=== PATIENT | female | born 1960 | race Caucasian/White ===

== ENCOUNTER 2016-09-10 10:15 | Day surgery (SDC) | payer MEDICARE ==
--- NOTE | 2016-09-10 09:22 | HP ---
DATE OF SURGERY: 09/10/2016 HISTORY OF PRESENT ILLNESS: The patient is a 55 year-old who in the past had epigastric pain, nausea and vomiting that had been going on for two to three months. No jaundice. Has had some loose stools. Ultrasound showed cholelithiasis. She received clearance from Dr. Roy. She denied prior history in the past. PAST MEDICAL HISTORY: Diabetes, chronic obstructive pulmonary disease, some heart disease, cervical cancer. PAST SURGICAL HISTORY: Hysterectomy, Achilles surgery. MEDICATIONS: Toujeo, gabapentin, Metformin, Gemfibrozil, Zetia, ropinirole, Xarelto, oxybutynin, cyclobenzaprine, Lortab, Combivent, lisinopril, Breo Ellipta. ALLERGIES: NKDA. FAMILY HISTORY: Diabetes, cancer. SOCIAL HISTORY: One pack per day smoker. Denies alcohol abuse. Noncontributory. REVIEW OF SYSTEMS: Twelve systems reviewed per admission assessment. No chest pain or palpitations currently, other systems negative or noncontributory as above and per preadmission questionnaire. She did have postoperative deep venous thrombosis in the past and that is why she is on the Xarelto. PHYSICAL EXAMINATION: GENERAL: No acute distress. HEENT: Sclerae nonicteric. NECK: No JVD. CHEST: Equal excursion, nonlabored breathing. CVS: Regular rate and rhythm. ABDOMEN: Soft. She had some epigastric pain. No peritoneal signs. EXTREMITIES: No significant edema. NEURO: Alert, moving extremities grossly symmetrically. No gross motor deficits noted. IMPRESSION: Symptomatic cholelithiasis, probable chronic cholecystitis. I feel the patient will benefit from cholecystectomy. Risks and benefits explained in detail including but not limited to bleeding or infection, risk of trocar injury or hernia, small risk of bowel, bladder or blood vessel injury, small risk of bile leak, bile duct injury, retained stone or sludge possibly requiring further procedure either open or ERCP, general risk of anesthesia, deep venous thrombosis, pulmonary embolism, pneumonia, perioperative risk of aches, pains, bloating, constipation and/or loose stools possibly even chronic in nature. She understands and agrees to the planned procedure, will proceed with laparoscopic cholecystectomy possible open as an outpatient.
[~2016-09-10 10:15] MED LIST: BRIDION 200MG/2ML IV ONE; DILAUDID 2 MG INJECTION IV ONE; DIPRIVAN 200 MG/20 ML IV ONE; Decadron 4 MG INJ IV ONE; Dopram IV ONE; Ephedrine Sulfate 50 MG/ML IV ONE; Lactated Ringers 1,000 ML IV ONE; PHENYLEPHRINE HCL IV ONE; Quelicin Fliptop 200 MG/10 ML IV ONE; SUBLIMAZE 100 MCG/2 ML IV ONE; Sensorcaine 0.25% 10 ML ONE; TORAdol 30 mg Injection IV ONE; Zemuron 100 MG/10 ML IV ONE; Zofran 4 MG/2 ML VIAL IV ONE
[2016-09-10] MEDS ORDERED: MEFOXIN 2 GM PREMIX** 50 ML IV ONE (10:44)
[2016-09-10] MEDS ORDERED: Lactated Ringers 1,000 ML IV SCH (11:00)
[2016-09-10] MEDS ORDERED: OFIRMEV 100 ML IV ONE (12:50)
[2016-09-10] MEDS ORDERED: SUBLIMAZE 100 MCG/2 ML ONE (13:27)
[2016-09-10] MEDS ORDERED: DILAUDID 2 MG INJECTION ONE (13:42)
[2016-09-10 17:49] VITALS: BP 101/50; O2SAT 94
[2016-09-10 17:50] VITALS: PULSE 70
--- NOTE | 2016-09-11 10:48 | OP ---
SURGERY DATE/TIME: 09/10/2016 1201 PREOPERATIVE DIAGNOSIS: Symptomatic cholelithiasis, chronic cholecystitis. POSTOPERATIVE DIAGNOSES: 1) Question early macroscopic cirrhosis of the liver. 2) Symptomatic cholelithiasis, chronic cholecystitis. PROCEDURES: 1) Laparoscopic cholecystectomy. 2) Laparoscopic liver Raul-Cut core biopsy. SURGEON: Dr. Yobany Rivera. ANESTHESIA: General. ESTIMATED BLOOD LOSS: Minimal. INDICATIONS: As noted above. Risks and benefits explained in detail but not limited to and consent obtained. DESCRIPTION OF PROCEDURE AND FINDINGS: The patient was taken to the OR. General anesthesia was induced. Abdomen is prepped and draped in the usual sterile fashion. After official time out and no disagreement with planned procedure, a transverse incision made at supraumbilical area. Fascia grasped and pulled upward. Veress needle inserted and tested with saline. Pneumoperitoneum accomplished insufflating opening pressure of 0-15. An 11 mm bladeless port and camera were inserted without difficulty followed by two - 5 mm right upper quadrant ports and an 11 mm epigastric port, a bladeless port placed 12 mm port. The liver had a macronodular early cirrhotic-type appearance, kind of a grayish color. There were omental adhesions to be taken off of the gallbladder and liver. The gallbladder was carefully dissected from posterior-lateral to anterior fashion this took quite some time but was slowly and carefully accomplished. The main cystic artery was clipped x3 and divided directly on the gallbladder wall this opened up the angle at the infundibular cystic duct junction, slowly and carefully skeletonized until a critical view was obtained both anteriorly and posteriorly. Once this was accomplished the cystic duct was inflamed so it was felt large clip alum operator would be a more secure closure. Therefore a 12 port had been placed in the epigastrium. A large clip was used clipping the cystic duct x3 and divided in the usual fashion. Gallbladder slowly and carefully dissected free from its dense almost concrete attachments to the liver bed staying directly on the gallbladder wall. It had some vascular attachments, some large veins and early cirrhosis appearance. Therefore this did require clipping these larger veins as necessary directly on the Gallbladder wall. Slowly and carefully the gallbladder was dissected free, final vein anterior edge of the liver was clipped. Just prior to releasing from final attachments at this point it was elected to go ahead and do Raul-Cut core biopsy. A stab wound was made in the right upper quadrant. A Raul-Cut core needle inserted and carefully advanced through the liver parenchyma elevating the liver well away from the retroperitoneum, viscera and other structures. Needle slid forward and advanced. Core needle was passed off and then core biopsy was quite oozing from this site. It was elected as it would do more harm than benefit taking additional core samples at this point. Core sample passed off for pathology with regular surface cauterized and direct pressure held with the blunt scoop. A small piece of Surgicel left in place in the area. Copious amount of irrigation accomplished lateral to the liver and subhepatic space irrigating until clear. Gallbladder released from final attachments to the edge of liver. It was then placed in Pleatman sac and pulled free out port wound and passed off. Port was replaced. Copious amount of irrigation accomplished lateral to the liver and subhepatic space irrigating until clear. Clips noted to be in place in cystic duct and cystic artery stumps. There were no signs of any active bleeding or bile leakage. At this point it was felt there was no benefit in drain placement. Fascial defects epigastrium and umbilical area were closed with puncture closure device with the camera with #1 Vicryl. Pneumoperitoneum decompressed. The wound was irrigated out. Skin incision closed with 4-0 Vicryl. Steri-Strips and sterile dressing applied. 0.25% Marcaine local injected along the skin incision fascial defect. The patient tolerated the procedure well. There were no immediate complications.
== END 2016-09-10 15:30 | disposition home or self-care (01) ==
LOC: SDC 10:15
PROVIDERS: ATTEND Surgery
PROC: 0FT44ZZ Resection of Gallbladder, Percutaneous Endoscopic Approach (ICD-10-PCS; principal; 2016-09-10)
PROC: 0FB04ZX Excision of Liver, Percutaneous Endoscopic Approach, Diagnostic (ICD-10-PCS; 2016-09-10)
DX: K80.10 Calculus of gallbladder with chronic cholecystitis without obstruction (principal); E11.9 Type 2 diabetes mellitus without complications; I10 Essential (primary) hypertension; N28.9 Disorder of kidney and ureter, unspecified; J44.9 Chronic obstructive pulmonary disease, unspecified; Z79.01 Long term (current) use of anticoagulants; Z79.899 Other long term (current) drug therapy
CPT/HCPCS: 00790; 36415; 82962; 88304; 88307; 88313; J0330; J0694; J1100; J1170; J1885; J2370; J2405; J2704; J3010